=== PATIENT | male | born 1985 | race Two or more races ===

== ENCOUNTER → 2022-02-07 13:49 | Outpatient (BNVA) | payer OTHER, SELFPAY | PROVIDERS: PCP Internal Medicine; Visit Provider Nurse Practitioner Family | DX: R40.0 Somnolence (principal); R06.81 Apnea, not elsewhere classified; E66.01 Morbid (severe) obesity due to excess calories; Z68.42 Body mass index [BMI] 45.0-49.9, adult; R06.83 Snoring | CPT/HCPCS: 99202 ==

== ENCOUNTER → 2022-08-29 14:58 | Outpatient (REF) | payer OTHER, SELFPAY | LOC: HO.SL 14:58 | PROVIDERS: PCP Internal Medicine; Visit Provider Nurse Practitioner Family | DX: Z13.89 Encounter for screening for other disorder (principal) ==

== ENCOUNTER → 2022-09-27 14:22 | Outpatient (BNVA) | payer OTHER, SELFPAY | PROVIDERS: PCP Internal Medicine; Visit Provider Nurse Practitioner Family | DX: R40.0 Somnolence (principal); R06.81 Apnea, not elsewhere classified; R06.83 Snoring; E66.01 Morbid (severe) obesity due to excess calories; Z68.42 Body mass index [BMI] 45.0-49.9, adult | CPT/HCPCS: 99212 ==

== ENCOUNTER 2023-05-28 15:12 | Outpatient (AMB) | payer OTHER, SELFPAY ==
[2023-05-28 15:16] VITALS: BP 134/78; PULSE 91; O2SAT 99; BMI 46.5
--- NOTE | 2023-05-28 15:16 | A.OFFPC_ITS ---
Vital Signs 05/28/23 15:16 Height 5 ft 10 in Weight 324 lb BMI 46.5 BP 134/78 Blood Pressure Location Lt brachial Position Sitting Pulse 91 Pulse Source Pulse Oximeter Pulse Oximetry (%) 99 Oxygen Delivery Method Room Air Intake Visit Reasons: High Blood Sugar Crown Blocker Required: No Allergies No Known Drug Allergies Allergy (Unknown, Verified 05/28/23 15:26) Unknown Medication List - Last Reconciled 05/28/23 by MARYAM Cabrera No Known Home Meds Tobacco use date assessed: 05/28/23 HPI High Blood Sugar HPI Details Patient is a 38-year-old male who presents today with high blood sugars at home for the past couple days. Patient of Dr. Barbosa, last visit 12/2021. Reports couple days ago his blood sugar was 595 associated with blurry vision, polydipsia, polyuria. Denies any more blurry vision. Reports he changed his diet and blood sugars ranging in 200s-300s. Will be having eye exam next month. No shortness of breath or chest pain. [facility] Surgical History No pertinent past surgical history Family History Mother High blood pressure Father High blood pressure Diabetes Housing: House Alcohol intake: current Alcohol intake frequency: holidays/special occasions only Patient Tobacco Use Status: Current everyday Tobacco user Cigarettes Per Day: 6 Second Hand Smoke Exposure: Yes service: No Current occupational status: employed Cognitive needs: No Hearing needs: No Vision needs: Yes Questionnaire Thrive Questionnaire Date Thrive assessed: 12/27/21 AUDIT C Alcohol Use Questionnaire (AUDIT-C) 1. How often do you have a drink containing alcohol?: Monthly or less 2. How many drinks containing alcohol do you have on a typical day when you are drinking?: 1 or 2 3. How often do you have six or more drinks on one occasion?: Never Total Score: 1 Score Reviewed/Action Taken: No PAPITO-7 AMB Questionnaire PAPITO-7 Date PAPITO - 7 assessed: 12/27/21 Source: Developed by Drs. Mikel Yoo, Sara Reid, Mingo Heck and colleagues, with an educational doris from [employer]. Review of Systems Const Denies body aches, Denies chills, Denies fever(s) and Denies headache(s) Eyes Denies change in vision ENT Denies dizziness, Denies otalgia, Denies headache(s), Denies nasal discharge, Denies sinus pain and Denies sore throat Card Denies chest pain, Denies edema, Denies lightheadedness and Denies dyspnea Resp Denies cough, Denies dyspnea and Denies wheezing GI Denies abdominal pain Denies dysuria Musc Denies myalgias Skin/Breast Denies rash Neuro Denies dizziness and Denies headache(s) Aller/Immun Denies wheezing Physical exam (Primary Care) Vital Signs: Last Vital Signs Pulse 91 05/28/23 15:16 BP 134/78 05/28/23 15:16 Pulse Ox 99 05/28/23 15:16 Oxygen Delivery Method Room Air 05/28/23 15:16 BMI result Body Mass Index 46.5 Tobacco/Smoking Status: Tobacco use Status Tobacco use date assessed 05/28/23 05/28/23 15:25 Patient Tobacco Use Status Current everyday Tobacco 05/28/23 15:25 Thrive Assessment: Date of Thrive Assessment Date Thrive assessed 12/27/21 05/28/23 15:25 Const General: cooperative and no acute distress Orientation/consciousness: patient oriented x3 HENMT Head: Yes normocephalic and Yes atraumatic Throat: Yes posterior oropharynx normal Eyes General: appearance normal, both eyes and all related structures Neck Neck: Yes normal visual inspection and Yes full ROM Resp Effort & Inspection: normal respiratory effort and able to speak in complete sentences Auscultation: clear to auscultation bilaterally, no crackles, no rales, no rhonchi and no wheezes Cardio Rate: regular rate Rhythm: regular rhythm Heart sounds: S1 normal heart sound present and S2 normal heart sound present GI Auscultation: normal bowel sounds Skin General skin exam: no rashes or lesions noted Neuro General: patient oriented x3 Gait exam (Neuro): Normal gait present Extrem General: Yes full ROM and No edema Results AMB Hemoglobin A1c AMB Hemoglobin A1c 11.6 % Last Edit by NEHAL Thayer on 05/28/23 15:28 Results Reviewed Results Reviewed: Laboratory Last Values Hgb A1c (Clinic) 11.6 % (4.0-6.0) H 05/28/23 14:42 Assessment and Plan Assessment & Plan (1) Diabetes mellitus, new onset: Code(s): E11.9 - Type 2 diabetes mellitus without complications Plan: A1c 11.6 today, goal less than 7 Start metformin 500 mg b.i.d.-educated about possible adverse reactions and when to notify provider Continue to monitor blood sugars at home Diabetes Education referral Continue low-carbohydrate diet Blood work ordered Follow-up with PCP in 3 months or sooner as needed Agreed with the plan Orders: Orders AMB Hemoglobin A1c 05/28/23 Z13.9 - Encounter for screening, unspecified Lipid Panel 05/28/23 E11.9 - Type 2 diabetes mellitus without complications Comprehensive [place]. Panel Fast 05/28/23 E11.9 - Type 2 diabetes mellitus without complications TSH reflex Free T4 05/28/23 E11.9 - Type 2 diabetes mellitus without complications Complete Blood Count no Diff 05/28/23 E11.9 - Type 2 diabetes mellitus without complications Microalbumin, Random (w Creat) 05/28/23 E11.9 - Type 2 diabetes mellitus without complications Referrals Diabetes Education Referral E11.9 - Type 2 diabetes mellitus without complications Medications: New metformin ER 500 mg PO BID 60 tabs 2RF E11.9 - Type 2 diabetes mellitus without complications Coding Level of Care Code Est Pt Level 3 (40436) Diagnoses Diabetes mellitus, new onset E11.9
== END 2023-05-28 15:39 | disposition home or self-care (01) ==
PROVIDERS: PCP Internal Medicine; Visit Provider Nurse Practitioner Family
DX: E11.9 Type 2 diabetes mellitus without complications (principal)
CPT/HCPCS: 83036; 99213